=== PATIENT | male | born 1990 | race Caucasian/White ===

== ENCOUNTER → 2021-01-31 | Day surgery (SDC) | payer MEDICARE ==
[~2021-01-31] MED LIST: CALCITRIOL0.5 MCG PO; COREG6.25 MG PO; MULTI VITAMIN1 EACH PO; NORCO5 PO; RENVELA800 MG PO; SODIUM BICARBO650 M3 PO; TUMS200 MG PO; TYLENOL325 MG PO
--- NOTE | ~2021-01-31 | OP ---
[facility] [address] [place] [address] OPERATIVE REPORT Name: ERNIE VALENTIN Room: [facility].#: [id number] Admission: 01/31/21 Attend Phys: Kareem Koenig Discharge: Date of : 88 Report #: [id number] THIS REPORT FOR: cc: Rico Marquis MD, Matthew S. MD Patterson, Jonathan D. MD ~ DATE OF SURGERY: 01/31/2021 PREOPERATIVE DIAGNOSIS: End-stage renal disease. POSTOPERATIVE DIAGNOSIS: End-stage renal disease. OPERATIONS: 1. Laparoscopic placement of tunneled intraperitoneal catheter. 2. Laparoscopic omentopexy. SURGEON: Kareem Koenig MD ANESTHESIA: General. ESTIMATED BLOOD LOSS: Minimal. SPECIMENS: None. DESCRIPTION OF PROCEDURE: After informed consent was obtained, the patient was brought to the operating room and placed supine. SCDs were placed and working, preoperative antibiotics were administered, general anesthesia was induced. The abdomen was prepped and draped in the usual sterile fashion. A 5 mm incision was made in the left upper quadrant. A 5 mm trocar was placed under direct vision. Pneumoperitoneum was established. A left-sided 5 mm trocar was placed. The omentum was grasped and retracted to the right upper quadrant. A 2-0 Vicryl suture was used using a PMI suture passer to go through the fascia, then through the omentum and then back out through the fascia. It was tied down, thereby this completed the omentopexy. A left-sided 8 mm rectus sheath trocar was placed. A 62 cm Covidien catheter was then placed through the trocar and the trocar was pulled away. The internal cuff was pulled back into the rectus sheath. Catheter was then tunneled to the left upper quadrant of the abdomen. The catheter was then flushed easily with 750 mL of heparinized saline. It drained easily as well. 500 mL of heparinized saline was left in the abdomen. The ports were removed under direct vision. The skin was closed with 4-0 Monocryl. Incisions were dressed with Steri-Strips. Sterile [place] [address] OPERATIVE REPORT Name: ERNIE VALENTIN Room: [facility]#: [id number] Admission: 01/31/21 Attend Phys: Kareem Koenig Discharge: Date of : 88 Report #: [id number] COMPLICATIONS: None. DISPOSITION: The patient was taken to recovery in satisfactory condition. By: [id number] Koenig MD /ruddy
[2021-01-31 08:41] LABS: HEMATOCRIT 31.2 % (42.0-52.0); HEMOGLOBIN 10.8 gm/dL (14.0-18.0); MCH 31.9 pg (26.0-34.0); MCHC 34.5 g/dL (28.0-37.0); MCV 92.3 fL (80.0-100.0); MPV 8.1 fl. (7.2-11.1); RBC 3.38 mil/uL (4.50-6.00); RDW-CV 13.6 % (10.5-14.5); WBC 10.7 thou/uL (4.0-11.0)
[2021-01-31 08:48] LABS: CALCIUM 9.8 mg/dL (8.5-10.1); CREATININE 8.7 mg/dL (0.6-1.3); POTASSIUM 3.9 mmol/L (3.5-5.1)
--- NOTE | 2021-01-31 11:14 | EKG ---
[place] [address] ELECTROCARDIOGRAM REPORT Name: ERNIE VALENTIN Room: [facility]#: [id number] Admission: 01/31/21 Attend Phys: Kareem Andino Discharge: Date of : 88 Date of Service: 01/31/21826 Report #: [id number] THIS REPORT FOR: //name// [facility] Test Date: 2021-01-31 Test Time: 08:27:29 Pat Name: ERNIE VALENTIN Department: Room: Gender: Padded Box Sewer: [place] : 1990 Requested By: Kareem Koenig Order Number: [id number] Ginger MD: Tien Patiño Measurements Intervals [place] Rate: 71 P: 11 [place]: 143 QRS: 152 QRSD: 106 T: 125 QT: 388 QTc: 422 Interpretive Statements Sinus rhythm Left posterior fascicular block Inferior infarct, old No previous ECG available for comparison Electronically Signed On 01-31-2021 11:13:51 PROJECT MANAGEMENT ENGINEER by Tien Patiño [email or web address] <ELECTRONICALLY SIGNED> By: Tien Patiño MD, [facility] 01/31/21 1113 0827 08 Tien Patiño MD, [facility] /EPI
== END | disposition home or self-care (01) ==
LOC: M.SUR 07:50
PROVIDERS: ATTEND Surgery
DX: I12.0 Hypertensive chronic kidney disease with stage 5 chronic kidney disease or end stage renal disease (principal); N18.6 End stage renal disease; G43.909 Migraine, unspecified, not intractable, without status migrainosus; Z98.890 Other specified postprocedural states; Z79.899 Other long term (current) drug therapy; Z20.822 Contact with and (suspected) exposure to COVID-19